=== PATIENT | female | born 1945 | race African-American/Black ===

== ENCOUNTER 2017-03-05 07:06 | Day surgery (SDC) | payer OTHER ==
[2017-03-05] MEDS ORDERED: D5 LR 1000 ML 1,000 ML IV ONE (07:16)
[2017-03-05] MEDS ORDERED: DIPRIVAN VIAL 20 ML ONE (07:58)
[2017-03-05 09:24] VITALS: BP 131/73
== END 2017-03-05 09:25 | disposition home or self-care (01) ==
LOC: SURG1 07:06
PROVIDERS: ATTEND Internal Medicine Gastroenterology
PROC: 0DJD8ZZ Inspection of Lower Intestinal Tract, Via Natural or Artificial Opening Endoscopic (ICD-10-PCS; principal; 2017-03-05 07:30)
PROC: 0DBP8ZX Excision of Rectum, Via Natural or Artificial Opening Endoscopic, Diagnostic (ICD-10-PCS; principal; 2017-03-05 07:30)
DX: Z12.11 Encounter for screening for malignant neoplasm of colon (principal); Z86.010 Personal history of colon polyps; K63.5 Polyp of colon; K57.30 Diverticulosis of large intestine without perforation or abscess without bleeding; K64.0 First degree hemorrhoids
CPT/HCPCS: A4217; J3490; J7120